=== PATIENT | female | born 1945 | race Caucasian/White ===

== ENCOUNTER 2016-04-11 08:29 | Outpatient (CLI) | payer MEDICARE, OTHER | END 2016-04-11 08:30 | disposition home or self-care (01) | DX: Z12.31 Encounter for screening mammogram for malignant neoplasm of breast (principal) ==

== ENCOUNTER 2016-06-07 09:13 | Outpatient (CLI) | payer MEDICARE, OTHER | END 2016-06-07 09:14 | disposition home or self-care (01) | DX: R53.83 Other fatigue (principal); R53.81 Other malaise ==

== ENCOUNTER 2016-09-26 10:35 | Outpatient (CLI) | payer MEDICARE, OTHER ==
--- NOTE | 2016-09-26 11:36 | Ultrasound Report ---
PELVIC ULTRASOUND: 09/26/2016 CLINICAL INDICATION: Followup right ovarian cyst. TECHNIQUE: Transabdominal pelvic ultrasound performed for global evaluation. Transvaginal pelvic ul trasound performed for detailed evaluation. Real-time scanning performed and static images obtained. COMPARISON: MRI pelvis 10/01/2015. FINDINGS: The patient is status post hysterectomy. The right ovary measures 3.5 x 2.5 x 2.3 cm, and demonstrates two cysts, the larger measuring 2.3 x 1.9 x 1.9 cm, and the smaller measuring 1.1 x 0.9 x 0.9 cm. The left ovary measures 2.3 x 1.5 x 0.7 cm, and appears unremarkable. No free fluid is p resent. IMPRESSION: NO SIGNIFICANT INTERVAL CHANGE IN RIGHT OVARIAN CYST, NOW MEASURING 2.3 CM (PREVIOUSLY 2 .2 CM). JOB #: [id number] EXT JOB #:[id number]
== END 2016-09-26 10:36 | disposition home or self-care (01) ==
LOC: DI 10:35
PROVIDERS: ATTEND Internal Medicine
DX: N83.201 Unspecified ovarian cyst, right side (principal); Z90.710 Acquired absence of both cervix and uterus
CPT/HCPCS: 76830; 76856

== ENCOUNTER 2016-12-15 09:22 | Outpatient (CLI) | payer MEDICARE, OTHER ==
--- NOTE | 2016-12-18 16:23 | DEXA Report ---
DEXA SCAN: 12/15/2016 INDICATION: Osteopenia screen. TECHNIQUE: Dual energy x-ray absorptiometry (DXA) was performed on a [employer] system. Regions measured are the AP spine, femoral neck, and, if needed, forearm. COMPARISON: None. In accordance with the International Society for Clinical Densitometry (ISCD) guidelines, data from previous exams may be reanalyzed using current recommendations and techniques. This is done to allow a more accurate basis for comparison with the current study. FINDINGS Data for the lumbar spine is as follows: REGION BMD (g/cm/cm) T-SCORE Z-SCORE L1 1.367 2.0 3.6 L2 1.147 -0.4 1.2 L3 1.214 0.1 1.8 L4 0.981 -1.8 -0.2 TOTAL 1.161 -0.2 1.5 NOTE: All evaluable vertebrae are used for classification. Data for the hip is as follows: REGION BMD (g/cm/cm) T-SCORE Z-SCORE Neck 0.758 -2.0 -0.3 TOTAL 0.745 -2.1 -0.6 NOTE: The femoral neck or total proximal femur, whichever is lowest, is used for classification. IMPRESSION: THE WHO CLASSIFICATION BASED ON THE INTERNATIONAL REFERENCE STANDARD IS OSTEOPENIA. FRACTURE RISK IS INCREASED. RECOMMENDATION: Patients with diagnosis of osteoporosis or osteopenia should have regular bone mineral density assessment. For those eligible for Medicare, routine testing is allowed once every 2 years. Testing frequency can be increased for patients who have rapidly progressing disease or for those who are receiving medical therapy to restore bone mass. COMMENT: World Health Organization (WHO) definitions for osteoporosis and osteopenia: NORMAL BMD: T-score at -1.0 or higher, fracture risk is low. OSTEOPENIA BMD: T-score between -1.0 and -2.5, fracture risk is increased. OSTEOPOROSIS BMD: T-score at -2.5 or lower, fracture risk high. National Osteoporosis Foundation recommends: 1. Obtain adequate dietary calcium (at least 1200 mg per day) and vitamin D (400 -800 international units per day). 2. Participate, as appropriate, in regular weightbearing and muscle- strengthening exercise. 3. Avoid tobacco use and reduce alcohol and caffeine intake. 4. For more detailed information see the website at www.NOF.org. MTDD
== END 2016-12-15 09:23 | disposition home or self-care (01) ==
LOC: DI 09:22
PROVIDERS: ATTEND Nurse Practitioner Primary Care
DX: M85.88 Other specified disorders of bone density and structure, other site (principal); Z78.0 Asymptomatic menopausal state
CPT/HCPCS: 77080

== ENCOUNTER 2017-06-14 08:00 | Outpatient (CLI) | payer MEDICARE, OTHER | END 2017-06-14 08:01 | disposition home or self-care (01) | LOC: LAB.R 08:00 | PROVIDERS: ATTEND Physician Assistant Medical | DX: N30.00 Acute cystitis without hematuria (principal) | CPT/HCPCS: 87086 ==

== ENCOUNTER 2017-09-06 16:19 | Outpatient (CLI) | payer MEDICARE, OTHER ==
--- NOTE | 2017-09-07 10:35 | XRAY Report ---
Procedure Date: 09/06/2017 Accession Number: [id number] / [id number] Procedure: XR - Lumbar Spine Complete CPT Code: FULL RESULT: EXAM: Lumbar Spine Complete DATE: 09/06/2017 4:59 PM CLINICAL HISTORY: BACK PX LUMBAR COMPARISON: [place] Operator view of the CT abdomen pelvis 02/04/2015. TECHNIQUE: 4 views. FINDINGS: Lumbarization of S1 resulting in 6 nonrib-bearing lumbar-type vertebral bodies. Similarly appearance of S-shaped scoliosis with a levoconvex curve followed by a dextroconvex curve. Approximately 1 cm of anterolisthesis of L4 on L5 with associated facet arthropathy. While a pars defect is suspected, it is not visualized. Associated degenerative changes are most pronounced at L1-2, L2-3 and L3-4 with marginal osteophytosis and loss of disc space height. No acute fracture is seen. IMPRESSION: S-shaped lumbar scoliosis and anterolisthesis of L4 on L5 with degenerative changes as described. Lumbarized S1 / 6 lumbar vertebral bodies. RADIA
== END 2017-09-06 16:20 | disposition home or self-care (01) ==
LOC: DI 16:19
PROVIDERS: ATTEND Physician Assistant Medical
DX: M47.896 Other spondylosis, lumbar region (principal); M43.16 Spondylolisthesis, lumbar region
CPT/HCPCS: 72110

== ENCOUNTER 2017-09-20 15:18 | Outpatient (CLI) | payer MEDICARE, OTHER ==
--- NOTE | 2017-09-20 16:39 | Ultrasound Report ---
Procedure Date: 09/20/2017 Accession Number: [id number] / [id number] Procedure: US - Abdomen Limited CPT Code: FULL RESULT: EXAM: Abdomen Limited DATE: 09/20/2017 4:07 PM CLINICAL HISTORY: RLQ ABDOMINAL SWELLING,MASS,OR LUMP COMPARISON: None. TECHNIQUE: Real-time scanning was performed with static images and cine loops obtained. FINDINGS: Images of the right inguinal region in the area of palpable lump with comparison images of the left inguinal region were obtained. A focal bulging in the region of the inguinal canal which is increased with Valsalva maneuver is identified in the region of the right inguinal canal. The phenomenon is readily suppressed with pressure from the probe. IMPRESSION: Reducible fat-containing right inguinal hernia. RADIA
== END 2017-09-20 15:19 | disposition home or self-care (01) ==
LOC: DI 15:18
PROVIDERS: ATTEND Physician Assistant Medical
DX: K40.90 Unilateral inguinal hernia, without obstruction or gangrene, not specified as recurrent (principal); M54.5 Low back pain
CPT/HCPCS: 76705

== ENCOUNTER 2017-10-25 11:04 | Outpatient (CLI) | payer MEDICARE, OTHER ==
--- NOTE | 2017-11-09 17:45 | Mammography Report ---
Reason: SCREEN Procedure Date: 10/25/2017 Accession Number: [id number] / [id number] Procedure: ELI - Screening 3D Estuardo CPT Code: 46472 FULL RESULT: EXAM: Screening 3D Estuardo DATE: 10/25/2017 3:17 PM CLINICAL HISTORY: 72-year-old female with history of early menses and family history of breast cancer in an aunt at age 50 was had a needle biopsy and lumpectomy presents for screening mammogram. TECHNIQUE: Bilateral CC and MLO views were obtained. COMPARISON: 04/11/2016, 09/09/2014, 12/25/2012, 06/02/2010. FINDINGS: The breasts demonstrate scattered fibroglandular densities bilaterally. Tomographically, well-circumscribed hyperdense masses are detected in both breasts which are retrospectively identified on older mammograms as being unchanged dating back at least to 2012 and therefore most certainly benign. No suspicious masses, clustered microcalcifications, or regions of architectural distortion are identified. IMPRESSION: Benign findings RECOMMENDATION: Routine annual screening unless otherwise clinically indicated. BIRADS CATEGORY 2: Benign findings STANDARD QUALIFYING STATEMENTS: 1. This examination was not reviewed with the aid of Computer-Aided Detection (CAD). 2. A negative or benign imaging report should not delay biopsy if clinically suspicious findings are present. Consider surgical consultation if warrented. More than 5% of cancers are not identified by imaging. 3. Dense breasts may obscure an underlying neoplasm. 4. This examination was reviewed with the aid of 3D imaging (tomography).
== END 2017-10-25 11:05 | disposition home or self-care (01) ==
LOC: DI 11:04
PROVIDERS: ATTEND Physician Assistant Medical
DX: Z12.31 Encounter for screening mammogram for malignant neoplasm of breast (principal); Z80.3 Family history of malignant neoplasm of breast
CPT/HCPCS: 77063; 77067

== ENCOUNTER 2017-12-13 08:09 | Outpatient (CLI) | payer MEDICARE, OTHER ==
[2017-12-13 13:24] LABS: BASOPHILS % (AUTO) 0.8 %; EOSINOPHILS # (AUTO) 0.2 10^3/uL (0.0-0.7); EOSINOPHILS % (AUTO) 3.3 %; HGB - HEMOGLOBIN 14.5 g/dL (12.0-16.0); LYMPHOCYTES # (AUTO) 1.2 10^3/uL (1.5-3.5); LYMPHOCYTES % (AUTO) 26.9 %; MEAN CORPUSCULAR HEMOGLOBIN 31.5 pg (27.0-31.0); MEAN CORPUSCULAR HGB CONC 33.8 g/dL (32.0-36.0); MEAN CORPUSCULAR VOLUME 93.2 fL (81.0-99.0); MEAN PLATELET VOLUME 8.8 fL (7.9-10.8); MONOCYTES # (AUTO) 0.4 10^3/uL (0.0-1.0); MONOCYTES % (AUTO) 8.2 %; NEUTROPHILS # (AUTO) 2.8 10^3/uL (1.5-6.6); NEUTROPHILS % (AUTO) 60.8 %; PLT - PLATELET COUNT 232 10^3/uL (130-450); RED BLOOD COUNT 4.61 10^6/uL (4.20-5.40); RED CELL DISTRIBUTION WIDTH 13.7 % (12.0-15.0); WHITE BLOOD COUNT 4.6 x10^3/uL (4.8-10.8)
[2017-12-13 13:46] LABS: ALBUMIN 4.2 g/dL (3.2-5.5); ALBUMIN/GLOBULIN RATIO 1.6 (1.0-2.2); ALKALINE PHOSPHATASE 66 IU/L (42-121); ALT ALANINE AMINOTRANSFERASE 23 IU/L (10-60); AST ASPARTATE AMINOTRANSFERASE 23 IU/L (10-42); BILIRUBIN,TOTAL 0.6 mg/dL (0.2-1.0); BUN - BLOOD UREA NITROGEN 14 mg/dL (6-20); CARBON DIOXIDE - CO2 30 mmol/L (21-32); CHLORIDE 104 mmol/L (101-111); CHOL/HDL RATIO 2.6 (<4.4); CHOLESTEROL 224 mg/dL; CREATININE 0.7 mg/dL (0.4-1.0); GFR - MDRD 82 (>89); GLUCOSE 98 mg/dL (70-100); HDL CHOLESTEROL 87 mg/dL; LDL CHOLESTEROL,CALCULATED 127 mg/dL; LDL/HDL RATIO 1.5 (<4.4); SODIUM 141 mmol/L (135-145); TOTAL PROTEIN 6.9 g/dL (6.7-8.2); VLDL CHOLESTEROL 10 mg/dL
== END 2017-12-13 08:10 ==
LOC: LAB.R 08:09
PROVIDERS: ATTEND Nurse Practitioner Primary Care
DX: Z79.899 Other long term (current) drug therapy (principal)
CPT/HCPCS: 80053; 80061; 83721; 85025

== ENCOUNTER 2018-08-07 09:27 | Day surgery (SDC) | payer MEDICARE, OTHER ==
[2018-08-07] MEDS ORDERED: LACTATED RINGERS 1,000 ML IV ONE (10:13)
[2018-08-07] MEDS ORDERED: fentaNYL 250 MCG/5 ML VIAL IVP ONE (10:56)
[2018-08-07] MEDS ORDERED: MIDAZOLAM 2 MG/2 ML VIAL IVP ONE (10:56)
[2018-08-07 11:59] VITALS: BP 127/61
== END 2018-08-07 09:28 | disposition home or self-care (01) ==
LOC: SDS 09:27
PROVIDERS: ATTEND Internal Medicine
PROC: 0DJD8ZZ Inspection of Lower Intestinal Tract, Via Natural or Artificial Opening Endoscopic (ICD-10-PCS; principal; 2018-08-07 10:30)
DX: Z12.11 Encounter for screening for malignant neoplasm of colon (principal); K64.8 Other hemorrhoids; K57.30 Diverticulosis of large intestine without perforation or abscess without bleeding; Z86.010 Personal history of colon polyps
CPT/HCPCS: G0105; J3010; J7120

== ENCOUNTER 2019-02-27 08:13 | Outpatient (CLI) | payer MEDICARE, OTHER ==
[2019-02-27 08:36] LABS: BASOPHILS % (AUTO) 0.7 %; EOSINOPHILS # (AUTO) 0.1 10^3/uL (0.0-0.7); EOSINOPHILS % (AUTO) 2.7 %; LYMPHOCYTES # (AUTO) 1.1 10^3/uL (1.5-3.5); LYMPHOCYTES % (AUTO) 23.5 %; MEAN CORPUSCULAR HEMOGLOBIN 31.4 pg (27.0-31.0); MEAN CORPUSCULAR HGB CONC 32.5 g/dL (32.0-36.0); MEAN CORPUSCULAR VOLUME 96.6 fL (81.0-99.0); MEAN PLATELET VOLUME 10.1 fL (7.9-10.8); MONOCYTES # (AUTO) 0.4 10^3/uL (0.0-1.0); MONOCYTES % (AUTO) 8.9 %; NEUTROPHILS # (AUTO) 2.9 10^3/uL (1.5-6.6); PLT - PLATELET COUNT 246 10^3/uL (130-450); RED BLOOD COUNT 4.46 10^6/uL (4.20-5.40); RED CELL DISTRIBUTION WIDTH 13.3 % (12.0-15.0); WHITE BLOOD COUNT 4.5 x10^3/uL (4.8-10.8)
[2019-02-27 08:51] LABS: ALBUMIN 4.4 g/dL (3.2-5.5); ALBUMIN/GLOBULIN RATIO 1.5 (1.0-2.2); ALKALINE PHOSPHATASE 67 IU/L (42-121); ALT ALANINE AMINOTRANSFERASE 27 IU/L (10-60); AST ASPARTATE AMINOTRANSFERASE 26 IU/L (10-42); BILIRUBIN,TOTAL 0.8 mg/dL (0.2-1.0); BUN - BLOOD UREA NITROGEN 13 mg/dL (6-20); CALCIUM 9.3 mg/dL (8.5-10.3); CARBON DIOXIDE - CO2 29 mmol/L (21-32); CHLORIDE 104 mmol/L (101-111); CHOL/HDL RATIO 2.4 (<4.4); CHOLESTEROL 223 mg/dL; CREATININE 0.8 mg/dL (0.4-1.0); GFR - MDRD 71 (>89); GLUCOSE 112 mg/dL (70-100); HDL CHOLESTEROL 94 mg/dL; LDL CHOLESTEROL,CALCULATED 115 mg/dL; LDL/HDL RATIO 1.2 (<4.4); SODIUM 141 mmol/L (135-145); TOTAL PROTEIN 7.3 g/dL (6.7-8.2); VLDL CHOLESTEROL 14 mg/dL
== END 2019-02-27 08:14 | disposition home or self-care (01) ==
LOC: LAB 08:13
PROVIDERS: ATTEND Nurse Practitioner
DX: F32.9 Major depressive disorder, single episode, unspecified (principal); F41.9 Anxiety disorder, unspecified; I49.9 Cardiac arrhythmia, unspecified; E78.5 Hyperlipidemia, unspecified; Z79.899 Other long term (current) drug therapy; Z78.0 Asymptomatic menopausal state
CPT/HCPCS: 36415; 80053; 80061; 82306; 83721; 85025

== ENCOUNTER 2019-04-18 13:12 | Outpatient (CLI) | payer MEDICARE, OTHER ==
--- NOTE | 2019-04-22 11:25 | DEXA Report ---
Reason: MENOPAUSAL Procedure Date: 04/18/2019 Accession Number: [id number] / [id number] Procedure: DEX - Dexa Spine and/or Hip CPT Code: Final Report FULL RESULT: EXAM: Dexa Spine and/or Hip DATE: 04/18/2019 2:56 PM CLINICAL HISTORY: MENOPAUSAL TECHNIQUE: Dual energy x-ray absorptiometry (DXA) was performed on a [employer] System. Regions measured are the AP Spine, femoral neck, and if needed forearm. COMPARISON: 12/15/2016. In accordance with the International Society for Clinical Densitometry (ISCD) guidelines, data from previous exams may be reanalyzed using current recommendations and techniques. This is done to allow a more accurate basis for comparison with the current study. FINDINGS: The data for the lumbar spine is as follows: BMD (g/cm/cm) T-SCORE Z-SCORE REGION L1 1.250 1.0 2.7 L2 1.337 1.1 2.9 L3 1.309 0.9 2.7 L4 0.993 -1.7 0.0 TOTAL 1.206 0.2 2.0 NOTE: All evaluable vertebrae are used for classification The data for the hip is as follows: BMD (g/cm/cm) T-SCORE Z-SCORE REGION Neck 0.739 -2.2 -0.3 TOTAL 0.720 -2.3 -0.7 NOTE: The femoral neck or total proximal femur, whichever is lowest, is used for classification. DXA RESULTS SUMMARY: Spine SCAN DATE AGE BMD CHANGE VS CHANGE VS PREVIOUS PREVIOUS % 04/18/2019 [age] 1.206 0.045* 3.9* 12/15/2016 [age] 1.161 * Denotes significant change at the 95% confidence level. Denotes dissimilar scan types or analysis methods. DXA RESULTS SUMMARY: Hip SCAN DATE AGE BMD CHANGE VS CHANGE VS PREVIOUS PREVIOUS % 04[age]18/2019 [age] 0.720 -0.025 -3.4 12/15/2016 [age] 0.745 * Denotes significant change at the 95% confidence level. Denotes dissimilar scan types or analysis methods. IMPRESSION: THE WHO CLASSIFICATION BASED ON THE INTERNATIONAL REFERENCE STANDARD IS OSTEOPENIA. THE FRACTURE RISK IS INCREASED. Interval decrease in bone density in the spine is statistically significant. RECOMMENDATION: Patients with diagnosis of osteoporosis or osteopenia should have regular bone mineral density assessment. For those eligible for Medicare, routine testing is allowed once every 2 years. Testing frequency can be increased for patients who have rapidly progressing disease or for those who are receiving medical therapy to restore bone mass. COMMENT: World Health Organization (WHO) definitions for osteoporosis and osteopenia: NORMAL BMD: T-score at -1.0 or higher, fracture risk is low OSTEOPENIA BMD: T-score between -1.0 and -2.5, fracture risk is increased. OSTEOPOROSIS BMD: T-score at -2.5 or lower, fracture risk is high. National Osteoporosis Foundation recommends: 1. Obtain adequate dietary calcium (at least 1200 mg per day) and vitamin D (400-800 international units per day). 2. Participate, as appropriate, in regular weightbearing and muscle-strengthening exercise. 3. Avoid tobacco use and reduce alcohol and caffeine intake. 4. For more detailed information see the website at www.NOF.org.
== END 2019-04-18 13:13 | disposition home or self-care (01) ==
LOC: DI 13:12
PROVIDERS: ATTEND Nurse Practitioner
DX: M85.88 Other specified disorders of bone density and structure, other site (principal)
CPT/HCPCS: 77080

== ENCOUNTER 2019-04-18 13:14 | Outpatient (CLI) | payer MEDICARE, OTHER ==
--- NOTE | 2019-04-23 13:53 | Mammography Report ---
Reason: ROUTINE MAMMO Procedure Date: 04/18/2019 Accession Number: [id number] / [id number] Procedure: ELI - Screening Mammo w/Estuardo CPT Code: Final Report FULL RESULT: EXAM: Screening Mammo w/Estuardo DATE: 04/18/2019 1:49 PM CLINICAL HISTORY: Screening encounter. History of early menses. History of benign right breast FNA 1989. TECHNIQUE: (B) - Bilateral CC, laterally exaggerated CC, MLO views were obtained. COMPARISON: 10/25/2017 through 06/02/2010. PARENCHYMAL PATTERN: (A) - The breast(s) demonstrate(s) scattered fibroglandular densities. FINDINGS: There are no suspicious masses, calcifications, or areas of distortion. IMPRESSION: Negative examination. BI-RADS category 1. RECOMMENDATION: (ANNUAL) - Recommend routine annual screening mammography. BI-RADS CATEGORY: (1) - Negative. STANDARD QUALIFYING STATEMENTS: 1. This examination was not reviewed with the aid of Computer-Aided Detection (CAD). 2. A negative or benign imaging report should not preclude biopsy if clinically suspicious findings are present. 3. Dense breasts may obscure an underlying neoplasm. 4. This examination was reviewed with the aid of 3D breast imaging (tomosynthesis).
== END 2019-04-18 13:15 | disposition home or self-care (01) ==
LOC: DI 13:14
PROVIDERS: ATTEND Nurse Practitioner
DX: Z12.31 Encounter for screening mammogram for malignant neoplasm of breast (principal)
CPT/HCPCS: 77063; 77067

== ENCOUNTER 2020-04-02 08:00 | Outpatient (CLI) | payer MEDICARE, OTHER ==
[2020-04-02 08:25] LABS: BASOPHILS % (AUTO) 0.7 %; EOSINOPHILS # (AUTO) 0.1 10^3/uL (0.0-0.7); EOSINOPHILS % (AUTO) 3.2 %; HGB - HEMOGLOBIN 13.8 g/dL (12.0-16.0); LYMPHOCYTES # (AUTO) 1.3 10^3/uL (1.5-3.5); LYMPHOCYTES % (AUTO) 29.8 %; MEAN CORPUSCULAR HEMOGLOBIN 31.4 pg (27.0-31.0); MEAN CORPUSCULAR HGB CONC 32.2 g/dL (32.0-36.0); MEAN CORPUSCULAR VOLUME 97.5 fL (81.0-99.0); MONOCYTES # (AUTO) 0.4 10^3/uL (0.0-1.0); MONOCYTES % (AUTO) 8.6 %; NEUTROPHILS # (AUTO) 2.5 10^3/uL (1.5-6.6); NEUTROPHILS % (AUTO) 57.5 %; PLT - PLATELET COUNT 238 10^3/uL (130-450); RED CELL DISTRIBUTION WIDTH 13.3 % (12.0-15.0); WHITE BLOOD COUNT 4.4 x10^3/uL (4.8-10.8)
[2020-04-02 08:45] LABS: ALBUMIN 4.1 g/dL (3.2-5.5); ALBUMIN/GLOBULIN RATIO 1.6 (1.0-2.2); ALKALINE PHOSPHATASE 69 IU/L (42-121); ALT ALANINE AMINOTRANSFERASE 24 IU/L (10-60); AST ASPARTATE AMINOTRANSFERASE 24 IU/L (10-42); BILIRUBIN,TOTAL 0.4 mg/dL (0.2-1.0); BUN - BLOOD UREA NITROGEN 14 mg/dL (6-20); CALCIUM 9.2 mg/dL (8.5-10.3); CARBON DIOXIDE - CO2 28 mmol/L (21-32); CHLORIDE 107 mmol/L (101-111); CHOL/HDL RATIO 2.8 (<4.4); CHOLESTEROL 248 mg/dL; CREATININE 0.7 mg/dL (0.4-1.0); GLUCOSE 109 mg/dL (70-100); HDL CHOLESTEROL 89 mg/dL; LDL CHOLESTEROL,CALCULATED 150 mg/dL; LDL/HDL RATIO 1.7 (<4.4); TOTAL PROTEIN 6.6 g/dL (6.7-8.2); VLDL CHOLESTEROL 9 mg/dL
[2020-04-02 11:16] LABS: HEMOGLOBIN A1c% 5.3 % (4.27-6.07)
== END 2020-04-02 23:59 | disposition home or self-care (01) ==
LOC: LAB 08:00
PROVIDERS: ATTEND Family Medicine
DX: R73.9 Hyperglycemia, unspecified (principal); K40.90 Unilateral inguinal hernia, without obstruction or gangrene, not specified as recurrent; E78.5 Hyperlipidemia, unspecified; K58.9 Irritable bowel syndrome, unspecified; F32.9 Major depressive disorder, single episode, unspecified; F41.9 Anxiety disorder, unspecified
CPT/HCPCS: 36415; 80053; 80061; 83036; 83721; 84443; 85025

== ENCOUNTER 2020-09-07 14:07 | Outpatient (CLI) | payer MEDICARE, OTHER ==
--- NOTE | 2020-09-09 11:46 | Mammography Report ---
BILATERAL DIGITAL SCREENING MAMMOGRAM 3D/2D: 09/07/2020 CLINICAL: Routine screening. Comparison is made to exams dated: 04/18/2019 mammogram, 10/25/2017 mammogram, 04/11/2016 mammogram, 08/20 mammogram, 12/25/2012 mammogram, and 06/02/2010 mammogram - [facility]. There are scattered fibroglandular elements in both breasts. There is an oval equal density focal asymmetry with an obscured and circumscribed margin in the left breast at 11 o'clock anterior depth. This is increased in size. No other significant masses, calcifications, or other findings are seen in either breast. IMPRESSION: INCOMPLETE: NEEDS ADDITIONAL IMAGING EVALUATION The oval equal density focal asymmetry in the left breast is indeterminate. Additional views with po ssible ultrasound are recommended. This exam was interpreted at Station ID: [id number]. NOTE: For mammograms, a report in lay terms will be sent to the patient. Approximately 15% of breast malignancies will not be visualized mammographically. In the management of a palpable breast mass, a negative mammogram must not discourage biopsy of a clinically suspicious lesion. Electronically Signed By: Arlin hancock/gustavo:09/07/2020 16:08:12 ACR BI-RADS Category 0: Incomplete 3340F PARENCHYMAL PATTERN: (A) - The breast(s) demonstrate(s) scattered fibroglandular densities. BI-RADS CATEGORY: (0) - 0 Mammo and US [id number] Immediate follow-up LATERALITY: (B)
== END 2020-09-07 14:08 | disposition home or self-care (01) ==
LOC: DI 14:07
DX: Z12.31 Encounter for screening mammogram for malignant neoplasm of breast (principal)

== ENCOUNTER 2020-10-06 09:00 | Outpatient (CLI) | payer MEDICARE, OTHER ==
--- NOTE | 2020-10-07 09:37 | Mammography Report ---
UNILATERAL LEFT DIGITAL DIAGNOSTIC MAMMOGRAM 3D/2D: 10/06/2020 CLINICAL: Patient returns today to evaluate a focal asymmetry in the left breast. Comparison is made to exams dated: 09/07/2020 mammogram, 04/18/2019 mammogram, 10/25/2017 mammogram, and 04/11/2016 mammogram - [facility]. There are scattered fibroglandular elements in left breast. There is an oval equal density focal asymmetry with an obscured and circumscribed margin in the left breast at 9 o'clock anterior depth. This is seen in additional views. This lesion does not appear significantly changed on tomosynthesis views when compared to the exam from 04/18/2019, but cannot not definitely be seen on the exam from 10/25/2017. No other significant masses or calcifications are seen in the breast. IMPRESSION: INCOMPLETE: NEEDS ADDITIONAL IMAGING EVALUATION The oval equal density focal asymmetry in the left breast is indeterminate. Targeted ultrasound is r ecommended for further evaluation, which will be performed immediately following this exam. This exam was interpreted at Station ID: [id number]. NOTE: For mammograms, a report in lay terms will be sent to the patient. Approximately 15% of breast malignancies will not be visualized mammographically. In the management of a palpable breast mass, a negative mammogram must not discourage biopsy of a clinically suspicious lesion. Electronically Signed By: Ilir rivera/gustavo:10/06/2020 10:17:30 ACR BI-RADS Category 0: Incomplete 3340F PARENCHYMAL PATTERN: (A) - The breast(s) demonstrate(s) scattered fibroglandular densities. BI-RADS CATEGORY: (0) - 0 Ultrasound [id number] Immediate follow-up LATERALITY: (L)
--- NOTE | 2020-10-07 09:38 | Ultrasound Report ---
LIMITED ULTRASOUND OF LEFT BREAST: 10/06/2020 CLINICAL: Patient returns today to evaluate a focal asymmetry in the left breast. Comparison is made to exams dated: 10/06/2020 mammogram, 09/07/2020 mammogram, 04/18/2019 mammogram, 10/25/2017 mammogram, and 04/11/2016 mammogram - [facility]. Color flow and real-time ultrasound of the left breast 9 o'clock region were performed. Uribe scale images of the real-time examination were reviewed. There is a 0.8 cm x 0.5 cm x 0.4 cm oval cyst with a smooth internal wall in the left breast at 9 o'c lock anterior depth 3 cm from the nipple. This oval cyst is hypoechoic. This correlates with mammog rafaela findings. IMPRESSION: PROBABLY BENIGN The 0.8 cm x 0.5 cm x 0.4 cm oval cyst in the left breast is consistent with a complicated cyst and i s probably benign. A follow-up left ultrasound in 6 months is recommended to demonstrate stability. This exam was interpreted at Station ID: [id number]. Electronically Signed By: Ilir rivera/gustavo:10/06/2020 10:29:28 Ultrasound BI-RADS: 3 Probably benign BI-RADS CATEGORY: (3) - 3 Ultrasound [id number] 6 month follow-up LATERALITY: (L)
== END 2020-10-06 09:01 | disposition home or self-care (01) ==
LOC: DI 09:00
PROVIDERS: ATTEND Family Medicine
DX: N60.02 Solitary cyst of left breast (principal)

== ENCOUNTER 2020-12-15 08:55 | Emergency (ER) | payer MEDICARE, OTHER ==
[2020-12-15 09:25] LABS: BASOPHILS % (AUTO) 0.2 %; EOSINOPHILS % (AUTO) 0.1 %; HCT - HEMATOCRIT 41.6 % (37.0-47.0); HGB - HEMOGLOBIN 13.6 g/dL (12.0-16.0); LYMPHOCYTES # (AUTO) 0.6 10^3/uL (1.5-3.5); LYMPHOCYTES % (AUTO) 4.1 %; MEAN CORPUSCULAR HEMOGLOBIN 31.5 pg (27.0-31.0); MEAN CORPUSCULAR HGB CONC 32.7 g/dL (32.0-36.0); MEAN CORPUSCULAR VOLUME 96.3 fL (81.0-99.0); MONOCYTES # (AUTO) 1.1 10^3/uL (0.0-1.0); MONOCYTES % (AUTO) 7.3 %; NEUTROPHILS % (AUTO) 87.9 %; PLT - PLATELET COUNT 226 10^3/uL (130-450); RED BLOOD COUNT 4.32 10^6/uL (4.20-5.40); RED CELL DISTRIBUTION WIDTH 13.4 % (12.0-15.0); WHITE BLOOD COUNT 14.8 x10^3/uL (4.8-10.8)
[2020-12-15 09:33] LABS: ALBUMIN 4.2 g/dL (3.2-5.5); ALBUMIN/GLOBULIN RATIO 1.6 (1.0-2.2); BILIRUBIN,TOTAL 0.9 mg/dL (0.2-1.0); CALCIUM 9.2 mg/dL (8.5-10.3); CREATININE 0.7 mg/dL (0.4-1.0); POTASSIUM 3.8 mmol/L (3.5-5.0); TOTAL PROTEIN 6.9 g/dL (6.7-8.2)
--- NOTE | 2020-12-15 10:18 | ED Physician Documentation ---
PD HPI ABD PAIN - Stated complaint Stated Complaint: ABD PX - Chief complaint Chief Complaint: Abd Pain - History obtained from History obtained from: Patient - History of Present Illness Timing - onset: Yesterday Timing - duration: Days (2) Timing - details: Gradual onset Pain level max: 7 Pain level now: 7 Quality: Aching, Pain Location: RLQ, Suprapubic, LLQ Radiation: No: Chest, , Lower back, Left flank, Left shoulder, Right flank, Right shoulder, Upper back Improved by: No: Eating, Laying still, Vomiting, BM, Position, Meds Worsened by: Palpation Associated symptoms: No: Fever, Nausea, Vomiting, Hematemesis, Diarrhea, Constipation, Melena, Hematochezia, Dysuria, Hematuria, Chest pain, Dizzy, Near syncope / syncope Recently seen: Not recently seen Review of Systems Constitutional: denies: Fever, Chills GI: denies: Nausea, Vomiting, Diarrhea Skin: denies: Rash Musculoskeletal: denies: Neck pain, Back pain Neurologic: denies: Headache PD PAST MEDICAL HISTORY - Past Medical History Past Medical History: Yes Cardiovascular: None Respiratory: Pneumonia Neuro: None Endocrine/Autoimmune: None GI: Colon polyps, Ulcerative colitis : None HEENT: Chronic vision loss Psych: Depression, Anxiety Musculoskeletal: Osteoarthritis Derm: None - Past Surgical History Past Surgical History: Yes General: Colonoscopy /DIRECTOR REGULATORY AGENCY: Hysterectomy HEENT: Tonsil/Adenoidectomy - Present Medications Home Medications: Ambulatory Orders Medication Instructions Recorded Confirmed Bupropion HCl [Budeprion Sr] 150 mg PO DAILY 03/05/13 12/18/15 Dicyclomine HCl [Bentyl] 1 mg PO TID 03/05/13 12/18/15 Fluticasone [Flonase] 1 spray MARIANN DAILY PRN 12/18/15 12/18/15 ALPRAZolam [Alprazolam] 1 PRN 08/07/18 Hyoscyamine Sulfate 1 PRN 08/07/18 Amox/Clav 875/125 [Augmentin] 1 each PO Q8H #30 tablet 12/15/20 - Allergies Allergies/Adverse Reactions: Allergies Allergy/AdvReac Type Severity Reaction Status Date / Time Sulfa (Sulfonamide Allergy Unknown Unknown Verified 12/15/20 09:02 Antibiotics) - Social History Does the pt smoke?: No Smoking Status: Never smoker Does the pt drink ETOH?: Yes Does the pt have substance abuse?: No - Immunizations Immunizations are current?: Yes - POLST Patient has POLST: No PD ED PE NORMAL - Vitals Vital signs reviewed: Yes - General General: Alert and oriented X 3, No acute distress - HEENT HEENT: Moist mucous membranes - Neck Neck: Supple, no meningeal sign - Cardiac Cardiac: RRR - Respiratory Respiratory: No respiratory distress, Clear bilaterally - Abdomen Abdomen: Soft, Non distended, Other (TTP suprapubic. no peritoneal signs. no rebound or guarding.) - Derm Derm: Warm and dry - Neuro Neuro: Alert and oriented X 3 - Psych Psych: Normal mood, Normal affect Results - Vitals Vitals: Vital Signs - 24 hr 12/15/20 12/15/20 12/15/20 08:59 11:02 11:32 Temperature 36.8 C Heart Rate 86 84 80 Respiratory 15 16 16 Rate Blood Pressure 136/74 H 127/70 128/62 O2 Saturation 99 98 100 Oxygen O2 Source Room air - Labs Labs: Laboratory Tests 12/15/20 12/15/20 12/15/20 09:12 09:12 10:10 WBC 14.8 H RBC 4.32 Hgb 13.6 Hct 41.6 MCV 96.3 MCH 31.5 H MCHC 32.7 RDW 13.4 Plt Count 226 MPV 10.0 Neut # (Auto) 13.0 H Lymph # (Auto) 0.6 L [place] # (Auto) 1.1 H Eos # (Auto) 0.0 Baso # (Auto) 0.0 Absolute Nucleated RBC 0.00 Nucleated RBC % 0.0 Sodium 140 Potassium 3.8 Chloride 104 Carbon Dioxide 27 Anion Gap 9.0 BUN 13 Creatinine 0.7 Estimated GFR (MDRD) 82 L Glucose 141 H Calcium 9.2 Total Bilirubin 0.9 AST 22 ALT 27 Alkaline Phosphatase 67 Total Protein 6.9 Albumin 4.2 Globulin 2.7 Albumin/Globulin Ratio 1.6 Lipase 27 Urine Color YELLOW Urine Clarity CLEAR Urine pH 7.0 Ur Specific [place] 1.015 Urine Protein NEGATIVE Urine Glucose (UA) NEGATIVE Urine Ketones 15 H Urine Occult Blood NEGATIVE Urine Nitrite NEGATIVE Urine Bilirubin NEGATIVE Urine Urobilinogen 0.2 (NORMAL) Ur Leukocyte Esterase NEGATIVE Ur Microscopic Review NOT INDICATED Urine Culture Comments NOT INDICATED - Rads (name of study) CT abd.pelvis Radiology: Final report received, EMP read contemporaneously, See rad report (acute diverticulitis) PD MEDICAL DECISION MAKING - ED course Complexity details: reviewed results, re-evaluated patient, considered differential, d/w patient ED course: 75-year-old female with acute diverticulitis on CT scan. No perforation or abscess. Patient is well-appearing, nontoxic. Afebrile. Will place on Augmentin and have her follow-up with her doctor for further care. Patient counseled regarding signs and symptoms for which I believe and urgent re- evaluation would be necessary. Patient with good understanding of and agreement to plan and is comfortable going home at this time This document was made in part using voice recognition software. While efforts are made to proofread this document, sound alike and grammatical errors may occur. Departure - Departure Disposition: 01 Home, Self Care Clinical Impression: Diverticulitis Condition: Good Instructions: ED Diverticulitis Follow-Up: Bowen Parker MD [Primary Care Provider] - Within 1 week Prescriptions: Amox/Clav 875/125 [Augmentin] 1 each PO Q8H #30 tablet Comments: Your prescriptions were sent to [facility] in [place]. Please follow-up with your doctor for further care. Return if you worsen including fevers, increasing pain or other new or worrisome symptoms. You do have diverticulitis on your CT scan today as we discussed. Discharge Date/Time: 12/15/20 11:57
[2020-12-15 10:19] LABS: BILIRUBIN,URINE NEGATIVE (NEGATIVE); GLUCOSE, URINE (UA) NEGATIVE (NEGATIVE); KETONES,URINE (UA) 15 mg/dL (NEGATIVE); LEUKOCYTE ESTERASE, URINE NEGATIVE (NEGATIVE); NITRITE,URINE NEGATIVE (NEGATIVE); OCCULT BLOOD,URINE NEGATIVE (NEGATIVE); PROTEIN,URINE NEGATIVE (NEGATIVE); UROBILINOGEN,URINE 0.2 (NORMAL) E.U./dL (NORMAL)
[2020-12-15 10:21] LABS: CLARITY,URINE CLEAR (CLEAR)
[2020-12-15] MEDS ORDERED: IOVERSOL 320 100 ML VIAL IVP ONE ×3 (10:25→16:50)
--- NOTE | 2020-12-15 11:12 | CT Report ---
PROCEDURE: Abdomen/Pelvis W INDICATIONS: lower abd pain CONTRAST: IV CONTRAST: Optiray 320 ml: 100 PO CONTRAST: *NO PO CONTRAST TECHNIQUE: After the administration of IV contrast, 5 mm thick sections acquired from the diaphragms to the symp hysis. 5 mm thick coronal and sagittal reformats were acquired. For radiation dose reduction, the f ollowing was used: automated exposure control, adjustment of mA and/or kV according to patient size. COMPARISON: None. FINDINGS: Image quality: Excellent. ABDOMEN: Lung bases: Bibasilar dependent atelectasis are seen posteriorly. Heart size is normal. Solid organs: Liver is normal in size. 3.1 x 2.1 cm well circumscribed hypodense structure involving anterior aspect of left hepatic lobe lateral segment is seen series 3 image 18. Additional smaller h ypodense areas also seen scattered in posterior segment of right hepatic lobe and measures 1.4 and 0. 8 cm in size series 3 images 23 and 24. 5 mm hypodense nodule involving most anterior portion of righ t hepatic lobe is also seen series 3 image 30. Spleen is normal in size. Well-circumscribed hypodense area involving inferior aspect of spleen is seen measures 1.5 cm in size series 3 image 26. Gallblad robert it is within normal limits Biliary system is non dilated. Pancreas enhances normally. No adren al nodules. Kidneys demonstrate normal size and enhancement, without hydronephrosis. Peritoneum and bowel: There is no bowel obstruction. No gastric or small bowel wall thickening. Mild fecal stasis in the colon is seen. Mild to moderate colonic diverticulosis is seen more prominent in the ascending colon and sigmoid colon. There is extensive wall thickening and pericolonic fat strandi ng involving distal descending colon and sigmoid colon with narrowing of the lumen particularly invol ving mid to distal sigmoid colon suggestive of diverticulitis. No discrete drainable abscess collecti on. No extraluminal air is seen. No free fluid or free air. Nodes and vessels: No retroperitoneal or mesenteric adenopathy by size criteria. Aorta and inferio r vena cava are normal in size. Miscellaneous: No ventral hernias. PELVIS: Genitourinary: Bladder wall thickness is normal. Miscellaneous: No inguinal hernias or adenopathy. Bones: No suspicious bony lesions. No vertebral body compression fractures. Grade 1 anterolisthesi s of L5 on S1 is seen. Degenerative endplate changes are noted throughout lumbar spine. IMPRESSION: 1. Finding is consistent with acute diverticulitis involving sigmoid colon. No abscess collection. No signs of perforation. No free fluid or free air. 2. Multiple well-circumscribed hypodensities in liver parenchyma and splenic parenchyma as described above likely represent benign process such as hepatic and splenic cysts. Reviewed by: Bernabe Velasquez MD on 12/15/2020 11:11 AM PDT Approved by: Bernabe Velasquez MD on 12/15/2020 11:11 AM PDT Station ID: [id number]
[2020-12-15] MEDS ORDERED: AMOX/CLAV 875 MG/125 MG TABLET PO STA (11:25)
[2020-12-15 11:33] VITALS: BP 128/62
== END 2020-12-15 11:57 | disposition home or self-care (01) ==
LOC: ED 08:55
DX: K57.32 Diverticulitis of large intestine without perforation or abscess without bleeding (principal)
CPT/HCPCS: 36415; 74177; 80053; 81003; 83690; 85025; 99284; A9270; Q9967; 81001; 87086

== ENCOUNTER 2021-05-11 09:43 | Outpatient (CLI) | payer MEDICARE, OTHER ==
--- NOTE | 2021-05-11 12:01 | DEXA Report ---
PROCEDURE: Dexa Spine and/or Hip INDICATIONS: MENOPAUSE TECHNIQUE: Dual energy x-ray absorptiometry (DXA) was performed on a [employer] System. Regions measur ed are the AP Spine, femoral neck, and if needed forearm. COMPARISON: 04/10/2019 and 12/15/2016. FINDINGS: Lumbar Spine: Bone Mineral Density 1.299 g/cm/cm,T score 1.0, fall Left Hip: Bone Mineral Density 0.717 g/cm/cm,T score -2.3, osteopenia Left Femoral Neck: Bone Mineral Density 0.71 to the g/cm/cm, T score -2.3, osteopenia (T score greater or equal to -1.0: NORMAL) (T score from -1.1 to -2.4: OSTEOPENIA) (T score less than or equal to -2.5 to: OSTEOPOROSIS) Impression: Osteopenia. Bone mineral density has decreased 0.4% in the interval since prior exam obtained 020. Patients with diagnosis of osteoporosis or osteopenia should have regular bone mineral density assess ment. For those eligible for Medicare, routine testing is allowed once every 2 years. Testing frequ ency can be increased for patients who have rapidly progressing disease or for those who are receivin g medical therapy to restore bone mass. Reviewed by: Fanny Streeter MD, PhD on 05/11/2021 12:00 PM PDT Approved by: Fanny Streeter MD, PhD on 05/11/2021 12:00 PM PDT Station ID: [id number]
== END 2021-05-11 09:44 | disposition home or self-care (01) ==
LOC: DI 09:43
PROVIDERS: ATTEND Family Medicine
DX: M85.89 Other specified disorders of bone density and structure, multiple sites (principal); Z78.0 Asymptomatic menopausal state

== ENCOUNTER 2021-05-17 10:00 | Outpatient (CLI) | payer MEDICARE, OTHER ==
--- NOTE | 2021-05-18 09:03 | Ultrasound Report ---
LIMITED ULTRASOUND OF LEFT BREAST: 05/17/2021 CLINICAL: 6 month follow-up of cysts. Comparison is made to exams dated: 10/06/2020 ultrasound, 10/06/2020 mammogram, 09/07/2020 mammogram, mammogram, 10/25/2017 mammogram, and 04/11/2016 mammogram - [facility]. Color flow and real-time ultrasound of the left breast 9 o'clock region were performed. Uribe scale i mages of the real-time examination were reviewed. There is a benign 0.6 cm x 0.3 cm x 0.3 cm oval cyst with a smooth internal wall in the left breast a t 9 o'clock anterior depth 3 cm from the nipple. This oval cyst is now anechoic. This abnormality i s decreased in size and correlates with mammography findings. Color flow imaging demonstrates that t here is no vascularity present. No intraductal mass. IMPRESSION: BENIGN There is no sonographic evidence of malignancy. The 0.6 cm anechoic cyst or prominent duct in the left breast is decreased in size and no longer demo nstrates internal debris and is benign. A 1 year screening mammogram is recommended. Exam findings were conveyed to the patient. This exam was interpreted at Station ID: [id number]. Electronically Signed By: Timothy Dudley M.D. [facility] [place]/:05/17/2021 11:20:55 Ultrasound BI-RADS: 2 Benign BI-RADS CATEGORY: (2) - 2 RECOMMENDATION: (ANNUAL) - Recommend routine annual screening mammography. [id number] 1 year screening LATERALITY: (B)
== END 2021-05-17 10:01 | disposition home or self-care (01) ==
LOC: DI 10:00
PROVIDERS: ATTEND Family Medicine
DX: N60.02 Solitary cyst of left breast (principal)

== ENCOUNTER 2021-07-07 13:03 | Emergency (ER) | payer MEDICARE, OTHER ==
--- NOTE | 2021-07-07 13:37 | ED Physician Documentation ---
PD HPI ABD PAIN - Stated complaint Stated Complaint: ABD PX - Chief complaint Chief Complaint: Abd Pain - History obtained from History obtained from: Patient - Additional information Additional information: 75-year-old woman with history of hysterectomy, no other abdominal surgeries presents for the evaluation of episodic right upper quadrant pain. She has a history of diverticulitis in the past but this is very different. Also history of IBS, again very different. She states that in the last year she has had about 4 episodes of this right upper quadrant pain. They almost always happen while she is in bed. Today's was much worse than the others. It started around 4 AM and lasted about 15 minutes. It was not associated with vomiting or diarrhea. No changes in bowel movements. Pain is in the right upper quadrant radiating towards the Umbilicus. No radiation to the back shoulder. No pain at this juncture. 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 HEENT: Tonsil/Adenoidectomy - Present Medications Home Medications: Ambulatory Orders Medication Instructions Recorded Confirmed Bupropion HCl [Budeprion Sr] 150 mg PO DAILY 03/05/13 07/07/21 Dicyclomine HCl [Bentyl] 1 mg PO TID 03/05/13 07/07/21 ALPRAZolam [Alprazolam] 1 tablet PRN PRN 08/07/18 07/07/21 - Allergies Allergies/Adverse Reactions: Allergies Allergy/AdvReac Type Severity Reaction Status Date / Time Sulfa (Sulfonamide Allergy Unknown Unknown Verified 07/07/21 13:10 Antibiotics) - Social History Does the pt smoke?: No Smoking Status: Never smoker Does the pt drink ETOH?: Yes Does the pt have substance abuse?: No - Immunizations Immunizations are current?: Yes - POLST Patient has POLST: No PD ED PE NORMAL - Vitals Vital signs reviewed: Yes - General General: Alert and oriented X 3, No acute distress - Cardiac Cardiac: RRR, No murmur - Respiratory Respiratory: No respiratory distress, Clear bilaterally - Abdomen Abdomen: Normal bowel sounds, Soft, Other (Very mild tenderness in the right upper quadrant without surgical signs) - Back Back: No CVA TTP, No spinal TTP - Derm Derm: Normal color, Warm and dry - Extremities Extremities: No edema, No calf tenderness / cord - Neuro Neuro: Alert and oriented X 3, Normal speech Results - Vitals Vitals: Vital Signs - 24 hr 07/07/21 07/07/21 13:06 15:45 Temperature 36.5 C Heart Rate 88 67 Respiratory 12 14 Rate Blood Pressure 142/74 H 147/80 H O2 Saturation 99 100 Oxygen O2 Source Room air - Labs Labs: Laboratory Tests 07/07/21 07/07/21 13:45 13:45 WBC 5.9 RBC 4.44 Hgb 13.9 Hct 42.3 MCV 95.3 MCH 31.3 H MCHC 32.9 RDW 13.6 Plt Count 232 MPV 10.0 Neut # (Auto) 4.0 Lymph # (Auto) 1.[address] [place] # (Auto) 0.5 Eos # (Auto) 0.1 Baso # (Auto) 0.0 Absolute Nucleated RBC 0.00 Nucleated RBC % 0.0 Sodium 142 Potassium 4.5 Chloride 104 Carbon Dioxide 30 Anion Gap 8.0 BUN 14 Creatinine 0.8 Estimated GFR (MDRD) 70 L Glucose 113 H Calcium 9.6 Total Bilirubin 0.4 AST 26 ALT 27 Alkaline Phosphatase 59 Total Protein 6.8 Albumin 4.2 Globulin 2.6 Albumin/Globulin Ratio 1.6 Lipase 35 PD MEDICAL DECISION MAKING - ED course ED course: 75-year-old woman with episodic right upper quadrant pain. Initial thought would have been biliary colic of course but ultrasound negative.'s followed by CT showing increased stool load which could be but is not necessarily causative. No pain here. Departure - Departure Disposition: 01 Home, Self Care Clinical Impression: Abdominal pain Qualifiers: Abdominal location: right upper quadrant Qualified Code(s): R10.11 - Right u pper quadrant pain Condition: Good Record reviewed to determine appropriate education?: Yes Instructions: ED Abdominal Pain Female Non-Specific Abdominal Pain Comments: As discussed your ultrasound was negative and your lab work was fairly normal. CAT scan showing diverticula and an increased stool load. Seems reasonable to increase water intake and it seems also reasonable to consider a slow taper of the dicyclomine as we discussed. Specifically what we discussed was going from your current regimen which is: 2, 2, 2, to: 2, 2, 1 then a week later 2, 1, 1 then a week later 1, 1, 1. Reasonable to discuss with your new GI doctor as well.
[2021-07-07 13:49] LABS: BASOPHILS % (AUTO) 0.7 %; EOSINOPHILS # (AUTO) 0.1 10^3/uL (0.0-0.7); HCT - HEMATOCRIT 42.3 % (37.0-47.0); HGB - HEMOGLOBIN 13.9 g/dL (12.0-16.0); LYMPHOCYTES # (AUTO) 1.2 10^3/uL (1.5-3.5); LYMPHOCYTES % (AUTO) 20.6 %; MEAN CORPUSCULAR HEMOGLOBIN 31.3 pg (27.0-31.0); MEAN CORPUSCULAR HGB CONC 32.9 g/dL (32.0-36.0); MEAN CORPUSCULAR VOLUME 95.3 fL (81.0-99.0); MONOCYTES # (AUTO) 0.5 10^3/uL (0.0-1.0); MONOCYTES % (AUTO) 8.7 %; NEUTROPHILS % (AUTO) 67.7 %; PLT - PLATELET COUNT 232 10^3/uL (130-450); RED BLOOD COUNT 4.44 10^6/uL (4.20-5.40); RED CELL DISTRIBUTION WIDTH 13.6 % (12.0-15.0); WHITE BLOOD COUNT 5.9 x10^3/uL (4.8-10.8)
[2021-07-07 14:03] LABS: ALBUMIN 4.2 g/dL (3.2-5.5); ALBUMIN/GLOBULIN RATIO 1.6 (1.0-2.2); BILIRUBIN,TOTAL 0.4 mg/dL (0.2-1.0); CALCIUM 9.6 mg/dL (8.5-10.3); CREATININE 0.8 mg/dL (0.4-1.0); POTASSIUM 4.5 mmol/L (3.5-5.0); TOTAL PROTEIN 6.8 g/dL (6.7-8.2)
[2021-07-07 15:45] VITALS: BP 147/80
[2021-07-07] MEDS ORDERED: IOVERSOL 320 100 ML VIAL IVP ONE ×2 (16:06→16:23)
--- NOTE | 2021-07-07 16:38 | Ultrasound Report ---
PROCEDURE: Abdomen Limited INDICATIONS: episodic RUQ pain TECHNIQUE: Real-time focused scanning was performed of the abdomen, with image documentation. COMPARISON: CT abdomen/pelvis 12/15/2020 FINDINGS: The liver is normal in size and diffusely increased in echogenicity. Multiple simple appearing cysts are seen, measuring up to 3.1 cm and the right hepatic lobe and 1.4 cm and the left hepatic lobe. The gallbladder appears normal without gallstones or gallbladder wall thickening. There is no pericho lecystic fluid. Sonographic Worthy sign is negative. No intrahepatic or extrahepatic biliary ductal dilatation. The common bile duct measures 5 mm. The visualized portions of the pancreas are unremarkable. Right kidney is normal in size measuring 11.5 cm. No hydronephrosis. IMPRESSION: 1.Normal gallbladder. 2.Diffusely increased hepatic echogenicity is nonspecific, but most commonly encountered in the setti ng of hepatic steatosis. However, other causes of hepatocellular disease are not excluded. Recommend clinical correlation. Reviewed by: Ilir Leiva MD on 07/07/2021 4:36 PM PDT Approved by: Ilir Leiva MD on 07/07/2021 4:36 PM PDT Station ID: [id number]
--- NOTE | 2021-07-07 16:49 | CT Report ---
PROCEDURE: Abdomen/Pelvis W INDICATIONS: IV only R abd pain CONTRAST: IV CONTRAST: Isovue 300 ml: 100 PO CONTRAST: *NO PO CONTRAST TECHNIQUE: After the administration of intravenous contrast, 5 mm thick sections acquired from the diaphragms to the symphysis. 5 mm thick coronal and sagittal reformats were acquired. For radiation dose reducti on, the following was used: automated exposure control, adjustment of mA and/or kV according to ind[place] ent size. COMPARISON: Abdominal ultrasound 07/07/2021. CT abdomen/pelvis 12/15/2020 FINDINGS: Image quality: Excellent. ABDOMEN: Lung bases: Lung bases are clear. Heart size is normal. Solid organs: Multiple simple cysts in the liver appear stable. Liver is normal in size. Gallbladder is unremarkable. Biliary system is non dilated. Pancreas enhances normally. A circumscribed hypode nsity at the inferior spleen is unchanged in size and may represent a cyst. No adrenal nodules. Kidn eys demonstrate normal size and enhancement, without hydronephrosis. Peritoneum and bowel: Multiple diverticula are seen in the colon without signs of acute diverticuliti s. Moderate stool is seen throughout the colon. No free fluid or air. Nodes and vessels: No retroperitoneal or mesenteric adenopathy by size criteria. Aorta and inferior vena cava are normal in size. Miscellaneous: No ventral hernias. PELVIS: Genitourinary: Bladder wall thickness is normal. Status post hysterectomy. Miscellaneous: No inguinal hernias or adenopathy. Bones: No suspicious bony lesions. No vertebral body compression fractures. Multilevel degenerativ e changes are seen in the spine. There is grade 1 anterolisthesis of L4 on L5 and grade 1 retrolisthe sis of L1 on L2. Stable benign sclerotic lesion in the anterior iliac bone. IMPRESSION: 1.No acute abnormality seen in the abdomen or pelvis. 2.Colonic diverticulosis without signs of acute diverticulitis. Moderate stool throughout the colon. Reviewed by: Ilir Leiva MD on 07/07/2021 4:48 PM PDT Approved by: Ilir Leiva MD on 07/07/2021 4:48 PM PDT Station ID: [id number]
== END 2021-07-07 17:44 | disposition home or self-care (01) ==
LOC: ED 13:03
DX: R10.11 Right upper quadrant pain (principal)
CPT/HCPCS: 36415; 74177; 76705; 80053; 83690; 85025; 99284; Q9967

== ENCOUNTER 2022-07-12 10:03 | Outpatient (CLI) | payer MEDICARE, OTHER ==
[2022-07-12 10:18] LABS: BASOPHILS % (AUTO) 0.7 %; EOSINOPHILS # (AUTO) 0.1 10^3/uL (0.0-0.7); EOSINOPHILS % (AUTO) 1.4 %; HCT - HEMATOCRIT 41.3 % (37.0-47.0); HGB - HEMOGLOBIN 13.5 g/dL (12.0-16.0); LYMPHOCYTES # (AUTO) 1.2 10^3/uL (1.5-3.5); LYMPHOCYTES % (AUTO) 20.6 %; MEAN CORPUSCULAR HEMOGLOBIN 31.3 pg (27.0-31.0); MEAN CORPUSCULAR HGB CONC 32.7 g/dL (32.0-36.0); MEAN CORPUSCULAR VOLUME 95.6 fL (81.0-99.0); MEAN PLATELET VOLUME 9.3 fL (7.9-10.8); MONOCYTES # (AUTO) 0.5 10^3/uL (0.0-1.0); MONOCYTES % (AUTO) 9.2 %; NEUTROPHILS # (AUTO) 3.9 10^3/uL (1.5-6.6); NEUTROPHILS % (AUTO) 67.9 %; PLT - PLATELET COUNT 299 10^3/uL (130-450); RED BLOOD COUNT 4.32 10^6/uL (4.20-5.40); WHITE BLOOD COUNT 5.7 x10^3/uL (4.8-10.8)
[2022-07-12 10:39] LABS: ALBUMIN/GLOBULIN RATIO 1.3 (1.0-2.2); ALKALINE PHOSPHATASE 63 IU/L (42-121); ALT ALANINE AMINOTRANSFERASE 38 IU/L (10-60); AST ASPARTATE AMINOTRANSFERASE 35 IU/L (10-42); BILIRUBIN,TOTAL 0.4 mg/dL (0.2-1.0); BUN - BLOOD UREA NITROGEN 12 mg/dL (6-20); CALCIUM 9.2 mg/dL (8.5-10.3); CARBON DIOXIDE - CO2 29 mmol/L (21-32); CHLORIDE 102 mmol/L (101-111); CHOL/HDL RATIO 2.7 (<4.4); CHOLESTEROL 221 mg/dL; CREATININE 0.7 mg/dL (0.4-1.0); GFR - MDRD 82 (>89); GLUCOSE 99 mg/dL (70-100); HDL CHOLESTEROL 82 mg/dL; LDL CHOLESTEROL,CALCULATED 126 mg/dL; LDL/HDL RATIO 1.5 (<4.4); POTASSIUM 3.8 mmol/L (3.5-5.0); SODIUM 139 mmol/L (135-145); TRIGLYCERIDES 66 mg/dL; VLDL CHOLESTEROL 13 mg/dL
[2022-07-12 10:49] LABS: THYROID STIMULATING HORMONE 0.91 uIU/mL (0.34-5.60)
[2022-07-12 11:38] LABS: ESTIMATED AVERAGE GLUCOSE 103 mg/dL (70-100); HEMOGLOBIN A1c% 5.2 % (4.27-6.07)
== END 2022-07-12 10:04 | disposition home or self-care (01) ==
LOC: LAB 10:03
PROVIDERS: ATTEND Family Medicine
DX: G11.8 Other hereditary ataxias (principal); K58.0 Irritable bowel syndrome with diarrhea; R73.9 Hyperglycemia, unspecified; E78.5 Hyperlipidemia, unspecified; F32.A Depression, unspecified
CPT/HCPCS: 36415; 80053; 80061; 83036; 83721; 84443; 85025

== ENCOUNTER 2023-07-24 06:04 | Emergency (ER) | payer MEDICARE, OTHER ==
[2023-07-24 07:11] LABS: BASOPHILS % (AUTO) 0.3 %; EOSINOPHILS % (AUTO) 0.4 %; HCT - HEMATOCRIT 37.8 % (37.0-47.0); HGB - HEMOGLOBIN 12.5 g/dL (12.0-16.0); LYMPHOCYTES # (AUTO) 0.7 10^3/uL (1.5-3.5); LYMPHOCYTES % (AUTO) 6.8 %; MEAN CORPUSCULAR HEMOGLOBIN 31.1 pg (27.0-31.0); MEAN CORPUSCULAR HGB CONC 33.1 g/dL (32.0-36.0); MEAN PLATELET VOLUME 9.8 fL (7.9-10.8); MONOCYTES # (AUTO) 0.8 10^3/uL (0.0-1.0); MONOCYTES % (AUTO) 7.9 %; NEUTROPHILS # (AUTO) 8.9 10^3/uL (1.5-6.6); NEUTROPHILS % (AUTO) 84.3 %; PLT - PLATELET COUNT 235 10^3/uL (130-450); RED BLOOD COUNT 4.02 10^6/uL (4.20-5.40); RED CELL DISTRIBUTION WIDTH 13.2 % (12.0-15.0); WHITE BLOOD COUNT 10.5 x10^3/uL (4.8-10.8)
[2023-07-24 07:42] LABS: ALBUMIN 3.9 g/dL (3.2-5.5); ALBUMIN/GLOBULIN RATIO 1.7 (1.0-2.2); BILIRUBIN,TOTAL 0.6 mg/dL (0.2-1.0); CALCIUM 9.4 mg/dL (8.5-10.3); CREATININE 0.7 mg/dL (0.6-1.3); POTASSIUM 3.8 mmol/L (3.5-4.5); TOTAL PROTEIN 6.2 g/dL (6.4-8.9)
--- NOTE | 2023-07-24 08:05 | ED Physician Documentation ---
PD HPI ABD PAIN - Stated complaint Stated Complaint: GI - Chief complaint Chief Complaint: Abd Pain - History obtained from History obtained from: Patient - History of Present Illness Timing - onset: Yesterday Timing - duration: Days (1) Timing - details: Gradual onset, Still present, Waxing and waning Quality: Cramping, Aching Location: Suprapubic, LLQ Radiation: Lower back Associated symptoms: Nausea, Vomiting, Diarrhea (loose small amounts x 2-3 with some mucous as well.). No: Fever Similar symptoms before: Has not had sx before (history of IBS episodes with workup by GI of scopes without signs of IBD nor Crohns. 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 HEENT: Tonsil/Adenoidectomy - Present Medications Home Medications: Ambulatory Orders Medication Instructions Recorded Confirmed Bupropion HCl [Budeprion Sr] 150 mg PO DAILY 03/05/13 07/22/21 Dicyclomine HCl [Bentyl] 1 mg PO TID 03/05/13 07/22/21 ALPRAZolam [Alprazolam] 1 tablet PO PRN PRN 08/07/18 07/22/21 Docusate Sodium 250Mg Capsule 250 mg PO DAILY #10 cap 07/22/21 [Colace 250Mg Capsule] Docusate Sodium 250Mg Capsule 250 mg PO DAILY #10 cap 07/22/21 [Colace 250Mg Capsule] HYDROcod/ACETAM 5/325 [Nageezi 5/325] 1 each PO Q4H #10 tablet 07/22/21 HYDROcod/ACETAM 5/325 [Nageezi 5/325] 1 each PO Q4H #20 tablet 07/22/21 Amox/Clav 875/125 [Augmentin] 1 each PO Q12H #14 tablet 07/24/23 HYDROcod/ACETAM 5/325 [Nageezi 5/325] 1 ea PO Q6H PRN #14 tablet 07/24/23 Ondansetron Odt [Zofran] 4 mg TL Q6H PRN #10 tablet 07/24/23 - Allergies Allergies/Adverse Reactions: Allergies Allergy/AdvReac Type Severity Reaction Status Date / Time Sulfa (Sulfonamide Allergy Unknown Unknown Verified 07/24/23 06:17 Antibiotics) - Social History Does the pt smoke?: No Smoking Status: Never smoker Does the pt drink ETOH?: Yes Does the pt have substance abuse?: No - Immunizations Immunizations are current?: Yes - POLST Patient has POLST: No PD ED PE NORMAL - Vitals Vital signs reviewed: Yes - General General: Alert and oriented X 3, No acute distress, Well developed/nourished - Cardiac Cardiac: RRR, No murmur - Respiratory Respiratory: Clear bilaterally - Abdomen Abdomen: Normal bowel sounds, Soft, Non distended, No organomegaly, Other (tender suprapubic area and LLQ with local guarding and slgiht guarding percussion tenderness. Rest of abd not tender.) Results - Vitals Vitals: Oxygen O2 Source Room air - Labs Labs: Microbiology 07/24/23 08:02 Urine Culture - Final Urine,Random LESS THAN 10,000 COLONIES/ML polymicrobial growth including potential pathogens. This is suggestive of skin or other contamination. Laboratory Tests 07/24/23 07/24/23 07/24/23 07:06 07:06 08:02 WBC 10.5 RBC 4.02 L Hgb 12.5 Hct 37.8 MCV 94.0 MCH 31.1 H MCHC 33.1 RDW 13.2 Plt Count 235 MPV 9.8 Neut # (Auto) 8.9 H Lymph # (Auto) 0.7 L [place] # (Auto) 0.8 Eos # (Auto) 0.0 Baso # (Auto) 0.0 Absolute Nucleated RBC 0.00 Nucleated RBC % 0.0 Sodium 140 Potassium 3.8 Chloride 105 Carbon Dioxide 30 Anion Gap 5.0 L BUN 13 Creatinine 0.7 Estimated GFR (MDRD) 81 L Glucose 126 H Calcium 9.4 Total Bilirubin 0.6 AST 18 ALT 21 Alkaline Phosphatase 67 Total Protein 6.2 L Albumin 3.9 Globulin 2.3 Albumin/Globulin Ratio 1.7 Lipase 13 Urine Color YELLOW Urine Clarity CLEAR Urine pH 7.0 Ur Specific [place] 1.010 Urine Protein NEGATIVE Urine Glucose (UA) NEGATIVE Urine Ketones NEGATIVE Urine Occult Blood NEGATIVE Urine Nitrite NEGATIVE Urine Bilirubin NEGATIVE Urine Urobilinogen 0.2 (NORMAL) Ur Leukocyte Esterase TRACE H Urine RBC 0-5 Urine WBC 4-5 Ur Squamous Epith Cells NONE SEEN Urine Bacteria None Seen Ur Microscopic Review INDICATED Urine Culture Comments INDICATED - Rads (name of study) abd/pelvic CT Relevant Findings:: EMP independent interpretation of test, See rad report (Rectal inflammation and local mural abscess (less than 2.5 cm size) c/w diverticulitis. Extensive diverticulosis in rectosigmoid area. ) PD Medical Decision Making - ED course Complexity details: reviewed results (labs not too exciting. CT abd needed to discern the cuase of pain with differential not clear with just exam alone. ), re-evaluated patient (she is comfortable and not wanting pain meds stronger here. ), considered differential, d/w patient, d/w [employer] security consultant (Dr. Dumont family protection specialist - the size of the abscess is less than needing draining and patient clinically does not sound like needing admission (though has complicated diverticulitis findings). ) Departure - Departure Disposition: 01 Home, Self Care Clinical Impression: Lower abdominal pain, Diverticulitis of sigmoid colon, Abscess of sigmoid colon due to diverticulitis Condition: Stable Record reviewed to determine appropriate education?: Yes Instructions: ED Diverticulitis Follow-Up: [facility] [Provider Group] Bowen Parker MD [Primary Care Provider] - Zay Trevino MD [Provider Admit Priv/Credential] - Prescriptions: Amox/Clav 875/125 [Augmentin] 1 each PO Q12H #14 tablet HYDROcod/ACETAM 5/325 [Nageezi 5/325] 1 ea PO Q6H PRN #14 tablet PRN Reason: Pain Ondansetron Odt [Zofran] 4 mg TL Q6H PRN #10 tablet PRN Reason: Nausea / Vomiting Comments: You do have diverticulosis extensively in the sigmoid and rectal area. There is some local inflammation with a small collection of fluid/abscess at the junction of the sigmoid and rectum tissue. It is high up enough to look more like sigmoid on the scan and in review with the surgeon on-call today.. The size of the abscess and the wall of the diverticulitis is small at 2 x 1.8 cm I believe. This is small enough that her surgeon believes it can be treated with just antibiotics and does not need surgical drainage. It is high up enough from the rectum that he would not really be approachable by just digital or simple procedure. It is in a location that if he gets bigger and needs draining, it could potentially be sigmoidoscopy or colonoscopy rather than surgical although if increased infection then the issue may be needing partial resection of the damaged area 2. At this point the current infection should be treatable with antibiotics, Tylenol, adequate fluids and adding in nausea and pain medicine if needed. If it is not readily improving over the next 3 to 5 days to essentially gone or if you develop increasing pain, fever, vomiting, bloody stools or other concerns then return sooner and. Otherwise follow-up with your primary care. Follow-up with general surgery as well once you are better for a discussion about indications for preventative surgery if you have extensive scarring and diverticulosis to reduce the chance of further episodes. I sent your prescriptions to the [facility] pharmacy here in [place]. I am prescribing a short course of narcotic pain medication for you. These are potentially dangerous and addictive medications that should be used carefully. These medications may constipate you. Take an [id number] stool softener such as docusate twice daily with plenty of water while taking these medications. If you go 24 hours without a bowel movement, take [id number] MiraLAX, per package instructions. Do not drink or drive while taking these medications. If you received narcotic or sedating medications while in the emergency department do not drive for 24 hours. Store this medication in a safe, secure place and out of reach of children. It is a violation of federal law to give or sell this medication to another person or to use in a manner other than prescribed. The ED will not refill narcotic prescriptions, including prescriptions lost or stolen. You can dispose of unwanted medications at the [facility]'s office or at several pharmacies such as [facility]. Forms: PCP List Discharge Date/Time: 07/24/23 13:05
[2023-07-24 08:08] LABS: BILIRUBIN,URINE NEGATIVE (NEGATIVE); GLUCOSE, URINE (UA) NEGATIVE (NEGATIVE); KETONES,URINE (UA) NEGATIVE (NEGATIVE); LEUKOCYTE ESTERASE, URINE TRACE (NEGATIVE); NITRITE,URINE NEGATIVE (NEGATIVE); OCCULT BLOOD,URINE NEGATIVE (NEGATIVE); PROTEIN,URINE NEGATIVE (NEGATIVE); UROBILINOGEN,URINE 0.2 (NORMAL) E.U./dL (NORMAL)
[2023-07-24 08:09] LABS: CLARITY,URINE CLEAR (CLEAR)
[2023-07-24 08:16] LABS: BACTERIA,URINE None Seen /HPF (None Seen); RBC,URINE 0-5 /HPF (0-5); SQUAMOUS EPITHELIAL CELL,UR NONE SEEN (<= Few)
[2023-07-24] MEDS: SODIUM CHLORIDE 0.9% 1,000 ML IV STA (08:35)
[2023-07-24] MEDS ORDERED: iohexoL-300 100 ML VIAL ONE (09:02)
--- NOTE | 2023-07-24 09:58 | CT Report ---
PROCEDURE: Abdomen/Pelvis W INDICATIONS: lower abd pain and vomiting/loose stool CONTRAST: Omni 300 100ml TECHNIQUE: After the administration of intravenous contrast, a CT scan of the abdomen and pelvis was performed. Images were recorded and evaluated at appropriate window settings. Reformats: coronal and sagittal. F or radiation dose reduction, the following was used: automated exposure control, adjustment of mA and /or kV according to patient size. COMPARISON: 07/07/2021. FINDINGS: Image quality: Diagnostic. Lower chest: Unremarkable. Liver: No solid mass. Numerous hepatic cysts. Gallbladder: No radiopaque stones or wall thickening. Biliary tree: No intrahepatic or extrahepatic dilation, accounting for age. Spleen: No splenomegaly. Pancreas: No pancreatic ductal dilation. Adrenals: No adrenal nodule. Kidneys and ureters: No hydronephrosis. No renal cystic lesion which requires follow up. No solid mas s. Stomach, bowel and peritoneum: Extensive diverticulosis involving the sigmoid and rectum. Acute infla mmatory process involving the rectum. Findings include diffuse wall thickening and prominent edema as well as a probable relatively proximal rectal wall abscess. This probable rectal wall abscess measur es approximately 2.1 x 1.4 cm. Reference axial image 84 of series 2 for the presumed rectal wall absc ess and images 8304 extensive rectal wall thickening and edema. No free air. No pathologic free fluid . Lymph nodes: No central or retroperitoneal adenopathy. Vessels: No infrarenal aortic aneurysm. Patent portal vein. PELVIS Reproductive organs: There is a probable cystic lesion of the right ovary which in retrospect was pre sent on the previous study, which time it was less than 3 cm, measuring 2.8 x 2.3 cm on previous imag e 63 of series 3. It now measures 3.8 x 2.6 cm on current image 95 of series 2 uterus is surgically a bsent.. Bladder: No abnormal wall thickening, accounting for underdistention. Pelvic lymph nodes: No pelvic adenopathy by size criteria. Bones: No aggressive osseous abnormality. Diffuse lumbar degenerative change.. Other: No significant ventral or inguinal hernia. IMPRESSION: 1. There is underlying extensive diverticulosis involving the sigmoid and rectum. 2. There is an acute inflammatory process involving the rectum with wall thickening and edema as well as a focal wall abscess. Differential includes rectal diverticulitis versus distal colitis. 3. A presumed cystic lesion of the right adnexa has increased in size. Previously, it was likely pres ent, and less than 3 cm. A lesion of less than 3 cm does not require follow-up. At this moment, the m aximum diameters 3.8 cm. Current recommendations for a presumed cystic ovarian lesion of this size ar e to reimage in one year's time. Differential includes benign and indolent malignant process. Reviewed by: Devante Stewart MD on 07/24/2023 9:57 AM PDT Approved by: Devante Stewart MD on 07/24/2023 9:57 AM PDT Station ID: [id number]
[2023-07-24] MEDS: KETOROLAC 15 MG/ML VIAL IVP STA (12:17)
[2023-07-24] MEDS: AMPICILLIN/SULBACTAM 1.5 GM in SODIUM CHLORIDE 0.9% MINIBAG 100 ML IV STA (12:19)
[2023-07-24 12:45] VITALS: BP 123/60; O2SAT 97
[2023-07-24] MEDS: iohexoL-300 100 ML VIAL IVP ONE (13:58)
== END 2023-07-24 13:05 | disposition home or self-care (01) ==
LOC: ED 06:04
DX: K57.20 Diverticulitis of large intestine with perforation and abscess without bleeding (principal)
CPT/HCPCS: 36415; 74177; 80053; 81001; 83690; 85025; 87086; 96365; 96375; 99284; Q9967; 81003

== ENCOUNTER 2023-10-03 14:20 | Outpatient (CLI) | payer MEDICARE, OTHER ==
--- NOTE | 2023-10-04 16:59 | DEXA Report ---
PROCEDURE: Dexa Spine and/or Hip INDICATIONS: POST MENOPAUSAL TECHNIQUE: Dual energy x-ray absorptiometry (DXA) was performed on a [employer] System. Regions measur ed are the AP Spine, femoral neck, and if needed forearm. COMPARISON: DEXA on May 11, 2021 FINDINGS: Lumbar Spine: Bone Mineral Density: 1.242 g/cm/cm,T score: 0.5. Since the most recent prior study, there has been a statistically significant decrease in bone mineral density by 4.4 XXX percent. Left Femoral Neck: Bone Mineral Density: 0.698 g/cm/cm, T score: -2.4. Left Hip: Bone Mineral Density: 0.702 g/cm/cm,T score: -2.4. There has been no statistically significant change in bone mineral density since the prior study. FRAX risk factors: Family history 10 year risk of major osteoporotic fracture: 33% major osteoporotic fracture = hip, clinical vertebral, proximal humerus, distal forearm 10 year risk of hip fracture: 22.5% (T score greater or equal to -1.0: NORMAL) (T score from -1.1 to -2.4: OSTEOPENIA) (T score less than or equal to -2.5 to: OSTEOPOROSIS) Impression: By WHO criteria, this patient has low bone density (osteopenia). Interval statistical decrease in bone mineral density of the lumbar spine. No statistical interval ch isabel in bone mineral density of the hip. The 10 year risk of major osteoporotic fracture is 33% and of a hip fracture is 22.5%. Patients with diagnosis of osteoporosis or osteopenia should have regular bone mineral density assess ment. For those eligible for Medicare, routine testing is allowed once every 2 years. Testing frequ ency can be increased for patients who have rapidly progressing disease or for those who are receivin g medical therapy to restore bone mass. Reviewed by: Cami Cortez MD on 10/04/2023 4:58 PM PDT Approved by: Cami Cortez MD on 10/04/2023 4:58 PM PDT Station ID: [id number]
== END 2023-10-03 14:21 | disposition home or self-care (01) ==
LOC: DI 14:20
PROVIDERS: ATTEND Family Medicine
DX: M85.89 Other specified disorders of bone density and structure, multiple sites (principal); Z78.0 Asymptomatic menopausal state

== ENCOUNTER 2023-10-05 21:25 | Outpatient (CLI) | payer MEDICARE, OTHER ==
--- NOTE | 2023-10-07 02:16 | Ultrasound Report ---
PROCEDURE: Pelvic Complete INDICATIONS: HX OF OVARIAN CYST TECHNIQUE: Real-time transabdominal scanning was performed of the pelvic organs, with image documentation. COMPARISON: 09/26/2016 FINDINGS: Uterus: Surgically absent Ovaries: The right ovary measures 4.2 x 2.9 x 3.3 cm, with a calculated ovarian volume of 21 cc. The re is a right ovarian cyst measuring 3.1 x 2.7 x 3.1 cm. It previously measured 2.3 x 1.9 x 1.9 cm. The left ovary is not visualized, likely secondary to involutional change. Other: No free pelvic fluid. IMPRESSION: Extremely slowly growing right ovarian cyst, now measuring 3.1 cm. This lesion may potentially be laura ign, or potentially may represent a very slow growing, indolent neoplasm. Comment: It is currently recommended that postmenopausal females with ovarian cysts of greater than 3 .0 cm should undergo repeat imaging in 12 months. Reviewed by: Devatne Stewart MD on 10/07/2023 2:15 AM PDT Approved by: Devante Stewart MD on 10/07/2023 2:15 AM PDT Station ID: [id number]
== END 2023-10-05 21:26 | disposition home or self-care (01) ==
LOC: DI 21:25
PROVIDERS: ATTEND Physician Assistant
DX: N83.201 Unspecified ovarian cyst, right side (principal)